=== PATIENT | male | born 1945 | race African-American/Black ===

== ENCOUNTER 2021-07-24 12:45 | Inpatient (IN) | payer MEDICARE ==
[~2021-07-24 12:45] MED LIST: Iopamidol-370 76% 500 ML 1 ML ONE
[2021-07-24] MEDS ORDERED: Ondansetron PF 4 MG/2 ML Vial ONE (13:26)
[2021-07-24 13:49] LABS: #Monocytes 0.6 thou/uL (0.11-0.59); #Neutrophils 6.7 thou/uL (1.40-6.50); %Basophils 0.1 % (0.0-1.0); %Eosinophils 0.3 % (0.0-10.0); %Lymphocytes 11.8 % (21.0-51.0); %Monocytes 6.6 % (0.0-10.0); %Neutrophils 81.1 % (42.0-75.0); Hemoglobin 14.6 g/dL (14.0-18.0); Mean Corpuscular HGB CONC 34.6 g/dL (32.0-36.0); Mean Corpuscular Hemoglobin 34.3 pg (27.0-31.0); Mean Corpuscular Volume 99.1 fL (78.0-98.0); Mean Platelet Volume 9.4 fL (7.4-10.4); Platelet Count 227 thou/uL (130-400); Red Blood Cell (RBC) Count 4.26 mill/uL (4.70-6.10); White Blood Cell (WBC) Count 8.3 thou/uL (4.8-10.8)
[2021-07-24 14:13] LABS: ALT (SGPT) 38 U/L (8-55); AST (SGOT) 34 U/L (5-34); Albumin 3.7 g/dL (3.4-4.8); Alkaline Phosphatase 128 U/L (40-110); Anion Gap 15 mmol/L (10-20); BUN (Urea Nitrogen) 10 mg/dL (8.4-25.7); Bilirubin, Total 0.7 mg/dL (0.2-1.2); Calc. Creatinine Clearance 0 mL/min (70-130); Calcium 9.3 mg/dL (7.8-10.44); Carbon Dioxide 29 mmol/L (23-31); Chloride 100 mmol/L (98-107); Globulin 5.2 g/dL (2.4-3.5); Glucose 127 mg/dL (83-110); Lipase 36 U/L (8-78); Potassium 3.5 mmol/L (3.5-5.1); Protein, Total 8.9 g/dL (5.8-8.1); Sodium 140 mmol/L (136-145)
[2021-07-24] MEDS ORDERED: hydrALAZINE 20 MG/ML VIAL ONE (15:16)
[2021-07-24] MEDS ORDERED: Acetaminophen 650 MG Suppository PR PRN (16:01)
[2021-07-24] MEDS ORDERED: Bisacodyl 10 MG SUPP PR PRN (16:01)
[2021-07-24] MEDS ORDERED: Ondansetron PF 4 MG/2 ML Vial IVP PRN (16:01)
[2021-07-24] MEDS ORDERED: hydrALAZINE 20 MG/ML VIAL SLOW IVP PRN (16:06)
[2021-07-24] MEDS ORDERED: Labetalol HCl 100 MG/20 ML VIAL SLOW IVP PRN (16:06)
[2021-07-24] MEDS ORDERED: HumaLOG 300 UNITS/3 ML VIAL SC PRN (16:45)
[2021-07-24] MEDS ORDERED: Dextrose 5% in Water 1,000 ML IV PRN (16:45)
[2021-07-24] MEDS ORDERED: Dextrose 50% Abboject 50 ML SYRINGE SLOW IVP PRN (16:45)
[2021-07-24] MEDS ORDERED: Piperacillin/Tazobactam 3.375 GM in Sodium Chloride 0.9% 100 ML IVPB SCH ×2 (17:15→18:00)
[2021-07-24] MEDS ORDERED: Enalaprilat Dihydrate 1.25 MG/ML VIAL SLOW IVP SCH (18:00)
[2021-07-24] MEDS ORDERED: Ondansetron ODT 4 MG TAB SL PRN (18:15)
[2021-07-24] MEDS ORDERED: Morphine 2 MG/ML VIAL SLOW IVP PRN (18:17)
[2021-07-24] MEDS ORDERED: Melatonin 3 MG TAB PO PRN (18:17)
[2021-07-24] MEDS ORDERED: Morphine 4 MG/ML VIAL SLOW IVP PRN (18:17)
[2021-07-24] MEDS: Metoprolol Tartrate 5 MG/5 ML VIAL IVP SCH (18:27)
[2021-07-24] MEDS: Sodium Chloride 0.9% 1,000 ML IV SCH (18:27)
[2021-07-24 18:52] VITALS: BMI 44.0
[2021-07-24] MEDS: Piperacillin/Tazobactam 3.375 GM in Sodium Chloride 0.9% 100 ML IVPB SCH (20:37)
[2021-07-24] MEDS: Famotidine/PF 20 mg/2ml Vial SLOW IVP SCH (20:37)
[2021-07-25] MEDS: Metoprolol Tartrate 5 MG/5 ML VIAL IVP SCH ×3 (00:11→11:34)
[2021-07-25 06:18] LABS: #Eosinphils 0.2 thou/uL (0.0-0.7); #Lymphocytes 1.3 thou/uL (1.20-3.40); #Monocytes 0.6 thou/uL (0.11-0.59); #Neutrophils 3.3 thou/uL (1.40-6.50); %Basophils 0.6 % (0.0-1.0); %Eosinophils 3.1 % (0.0-10.0); %Lymphocytes 23.7 % (21.0-51.0); %Monocytes 10.8 % (0.0-10.0); %Neutrophils 61.7 % (42.0-75.0); Hemoglobin 13.4 g/dL (14.0-18.0); Mean Corpuscular HGB CONC 34.5 g/dL (32.0-36.0); Mean Corpuscular Hemoglobin 34.4 pg (27.0-31.0); Mean Corpuscular Volume 99.8 fL (78.0-98.0); Platelet Count 209 thou/uL (130-400); RBC Distribution Width 13.1 % (11.5-14.5); Red Blood Cell (RBC) Count 3.88 mill/uL (4.70-6.10); White Blood Cell (WBC) Count 5.3 thou/uL (4.8-10.8)
[2021-07-25] MEDS: Piperacillin/Tazobactam 3.375 GM in Sodium Chloride 0.9% 100 ML IVPB SCH ×3 (06:32→20:44)
[2021-07-25 06:34] LABS: Anion Gap 10 mmol/L (10-20); BUN (Urea Nitrogen) 10 mg/dL (8.4-25.7); Calc. Creatinine Clearance 145 mL/min (70-130); Calcium 8.3 mg/dL (7.8-10.44); Carbon Dioxide 33 mmol/L (23-31); Chloride 103 mmol/L (98-107); Glucose 113 mg/dL (83-110); Potassium 3.7 mmol/L (3.5-5.1); Sodium 142 mmol/L (136-145)
[2021-07-25] MEDS: Enoxaparin Sodium 40 MG/0.4 ML SYRINGE SC SCH (11:30)
[2021-07-25] MEDS: Famotidine/PF 20 mg/2ml Vial SLOW IVP SCH ×2 (11:30→20:44)
[2021-07-25 11:51] LABS: SARS-CoV-2 PCR by NAA Not Detected (NotDetected)
[2021-07-25] MEDS ORDERED: MD-Gastroview 120 ML BOT ONE (13:50)
[2021-07-25] MEDS: hydrALAZINE 20 MG/ML VIAL SLOW IVP PRN (15:41)
[2021-07-25] MEDS ORDERED: Atenolol 50 MG TAB PO SCH ×3 (16:00→21:00)
[2021-07-25] MEDS ORDERED: Amlodipine 10 MG TAB PO SCH ×3 (16:00→21:00)
[2021-07-25] MEDS ORDERED: Metoprolol Tartrate 5 MG/5 ML VIAL IVP PRN (16:08)
[2021-07-25 17:16] LABS: Magnesium 1.8 mg/dL (1.6-2.6)
[2021-07-25] MEDS: Sodium Chloride 0.9% 1,000 ML IV SCH (19:27)
[2021-07-25] MEDS: hydrALAZINE 25 MG TAB PO SCH (20:43)
[2021-07-25] MEDS: Lisinopril 20 MG TAB PO SCH (20:43)
[2021-07-25] MEDS ORDERED: Non-Formulary Item 1 EACH (Hydralazine Hcl [Hydralazine Hcl] 50 MG Tablet) PO SCH (21:00)
[2021-07-26] MEDS: hydrALAZINE 20 MG/ML VIAL SLOW IVP PRN ×2 (02:00→13:14)
[2021-07-26] MEDS: Sodium Chloride 0.9% 1,000 ML IV SCH (05:19)
[2021-07-26] MEDS: Piperacillin/Tazobactam 3.375 GM in Sodium Chloride 0.9% 100 ML IVPB SCH ×3 (05:19→21:08)
[2021-07-26 08:03] LABS: Chloride 104 mmol/L (98-107); Potassium 3.5 mmol/L (3.5-5.1); Sodium 143 mmol/L (136-145)
[2021-07-26 08:04] LABS: Glucose 96 mg/dL (83-110)
[2021-07-26 08:06] LABS: Anion Gap 14 mmol/L (10-20); Carbon Dioxide 29 mmol/L (23-31)
[2021-07-26 08:07] LABS: Phosphorus 2.5 mg/dL (2.3-4.7)
[2021-07-26 08:08] LABS: BUN (Urea Nitrogen) 10 mg/dL (8.4-25.7); Calc. Creatinine Clearance 135 mL/min (70-130)
[2021-07-26 08:10] LABS: Magnesium 1.8 mg/dL (1.6-2.6)
[2021-07-26] MEDS: Famotidine/PF 20 mg/2ml Vial SLOW IVP SCH ×2 (09:05→21:08)
[2021-07-26] MEDS: Enoxaparin Sodium 40 MG/0.4 ML SYRINGE SC SCH (09:05)
[2021-07-26] MEDS: hydrALAZINE 25 MG TAB PO SCH ×3 (09:06→21:08)
[2021-07-26] MEDS ORDERED: Atenolol 50 MG TAB PO SCH (17:00)
[2021-07-26] MEDS ORDERED: Amlodipine 10 MG TAB PO SCH (17:00)
[2021-07-26] MEDS: Lisinopril 20 MG TAB PO SCH (21:08)
[2021-07-27] MEDS: hydrALAZINE 20 MG/ML VIAL SLOW IVP PRN (04:46)
[2021-07-27] MEDS: Piperacillin/Tazobactam 3.375 GM in Sodium Chloride 0.9% 100 ML IVPB SCH (05:02)
[2021-07-27] MEDS ORDERED: Atenolol 50 MG TAB PO SCH (09:00)
[2021-07-27] MEDS ORDERED: Amlodipine 10 MG TAB PO SCH (09:00)
[2021-07-27] MEDS: Famotidine/PF 20 mg/2ml Vial SLOW IVP SCH (09:41)
[2021-07-27] MEDS: hydrALAZINE 25 MG TAB PO SCH ×2 (09:41→16:27)
[2021-07-27] MEDS: Enoxaparin Sodium 40 MG/0.4 ML SYRINGE SC SCH (09:43)
[2021-07-27 16:28] VITALS: BP 182/108; TEMP 97.5
== END 2021-07-27 17:11 | disposition home or self-care (01) | DRG 389 ==
LOC: ERS 12:45 → 2SW 15:17 → OBSVTOIN 07-26 10:45
PROVIDERS: ADMIT Family Medicine; ATTEND Family Medicine
PROC: 0D9670Z Drainage of Stomach with Drainage Device, Via Natural or Artificial Opening (ICD-10-PCS; principal; 2021-07-26)
DX: K56.609 Unspecified intestinal obstruction, unspecified as to partial versus complete obstruction (principal); Z68.41 Body mass index [BMI] 40.0-44.9, adult; K56.7 Ileus, unspecified; K52.9 Noninfective gastroenteritis and colitis, unspecified; Z20.822 Contact with and (suspected) exposure to COVID-19; I10 Essential (primary) hypertension; E11.9 Type 2 diabetes mellitus without complications; K59.00 Constipation, unspecified; E66.01 Morbid (severe) obesity due to excess calories; Z79.899 Other long term (current) drug therapy
CPT/HCPCS: 36415; 36416; 74018; 74022; 74177; 74250; 80048; 80053; 83690; 83735; 84100; 84484; 85025; 93005; 96372; 96374; 96375; 96376; G0378; J0360; J1650; J2405; J2543; J3490; J7050; Q9963; S0028; U0003; U0005

== ENCOUNTER 2021-10-22 02:27 | Inpatient (IN) | payer MEDICARE ==
[2021-10-22 03:32] VITALS: BMI 42.9
[2021-10-22] MEDS ORDERED: Morphine 4 MG/ML VIAL SLOW IVP PRN ×2 (03:42)
[2021-10-22] MEDS ORDERED: Ondansetron ODT 4 MG TAB SL PRN (03:45)
[2021-10-22] MEDS ORDERED: Ondansetron PF 4 MG/2 ML Vial IVP PRN (03:45)
[2021-10-22] MEDS ORDERED: 1/2 NS w/KCL 20 mEq 1,000 ML IV SCH (03:45)
[2021-10-22] MEDS ORDERED: Acetaminophen 650 MG Suppository PR PRN (04:18)
[2021-10-22] MEDS: Sodium Chloride 0.9% 1,000 ML IV SCH ×3 (04:31→21:30)
[2021-10-22 05:21] LABS: SARS-CoV-2 NAA Rapid Test Not Detected (NotDetected)
[2021-10-22 06:40] LABS: #Lymphocytes 0.9 thou/uL (1.20-3.40); #Monocytes 0.3 thou/uL (0.11-0.59); #Neutrophils 4.9 thou/uL (1.40-6.50); %Basophils 0.2 % (0.0-1.0); %Eosinophils 0.2 % (0.0-10.0); %Lymphocytes 14.4 % (21.0-51.0); %Monocytes 5.1 % (0.0-10.0); %Neutrophils 80.1 % (42.0-75.0); Hemoglobin 13.7 g/dL (14.0-18.0); Mean Corpuscular HGB CONC 32.7 g/dL (32.0-36.0); Mean Corpuscular Hemoglobin 33.3 pg (27.0-31.0); Mean Platelet Volume 9.8 fL (7.4-10.4); Platelet Count 193 thou/uL (130-400); RBC Distribution Width 13.5 % (11.5-14.5); Red Blood Cell (RBC) Count 4.12 mill/uL (4.70-6.10); White Blood Cell (WBC) Count 6.1 thou/uL (4.8-10.8)
[2021-10-22 06:55] LABS: Anion Gap 11 mmol/L (10-20); BUN (Urea Nitrogen) 11 mg/dL (8.4-25.7); Calc. Creatinine Clearance 139 mL/min (70-130); Calcium 8.7 mg/dL (7.8-10.44); Carbon Dioxide 31 mmol/L (23-31); Chloride 101 mmol/L (98-107); Glucose 129 mg/dL (83-110); Potassium 3.6 mmol/L (3.5-5.1); Sodium 139 mmol/L (136-145)
[2021-10-22] MEDS ORDERED: Dextrose 50% Abboject 50 ML SYRINGE SLOW IVP PRN (08:44)
[2021-10-22] MEDS ORDERED: Dextrose 5% in Water 1,000 ML IV PRN (08:44)
[2021-10-22] MEDS ORDERED: HumaLOG 300 UNITS/3 ML VIAL SC PRN ×2 (08:44)
[2021-10-22] MEDS ORDERED: hydrALAZINE 20 MG/ML VIAL SLOW IVP PRN (08:54)
[2021-10-22] MEDS: Ondansetron PF 4 MG/2 ML Vial IVP PRN ×2 (09:06→15:51)
[2021-10-22] MEDS ORDERED: MD-Gastroview 120 ML BOT ONE (09:53)
[2021-10-23] MEDS: Labetalol HCl 100 MG/20 ML VIAL SLOW IVP PRN ×2 (01:16→09:18)
[2021-10-23] MEDS: Sodium Chloride 0.9% 1,000 ML IV SCH ×2 (05:57→13:07)
[2021-10-23 06:40] LABS: #Lymphocytes 1.2 thou/uL (1.20-3.40); #Monocytes 0.6 thou/uL (0.11-0.59); #Neutrophils 3.6 thou/uL (1.40-6.50); %Basophils 0.3 % (0.0-1.0); %Eosinophils 0.6 % (0.0-10.0); %Lymphocytes 22.5 % (21.0-51.0); %Monocytes 11.4 % (0.0-10.0); %Neutrophils 65.1 % (42.0-75.0); Hemoglobin 12.8 g/dL (14.0-18.0); Mean Corpuscular HGB CONC 31.9 g/dL (32.0-36.0); Mean Platelet Volume 9.6 fL (7.4-10.4); Platelet Count 194 thou/uL (130-400); RBC Distribution Width 13.8 % (11.5-14.5); Red Blood Cell (RBC) Count 3.88 mill/uL (4.70-6.10); White Blood Cell (WBC) Count 5.5 thou/uL (4.8-10.8)
[2021-10-23 07:02] LABS: Anion Gap 9 mmol/L (10-20); BUN (Urea Nitrogen) 17 mg/dL (8.4-25.7); Calc. Creatinine Clearance 136 mL/min (70-130); Calcium 8.7 mg/dL (7.8-10.44); Carbon Dioxide 29 mmol/L (23-31); Chloride 108 mmol/L (98-107); Glucose 116 mg/dL (83-110); Potassium 3.3 mmol/L (3.5-5.1); Sodium 143 mmol/L (136-145)
[2021-10-23] MEDS ORDERED: FlunisoLIDE 0.025% Nasal Spray 25 ml Bottle EA NARE PRN (11:30)
[2021-10-23] MEDS ORDERED: Potassium Chloride 20 MEQ in Premix Bag 1 BAG IVPB SCH (11:45)
[2021-10-23] MEDS ORDERED: Atenolol 50 MG TAB PO SCH (12:15)
[2021-10-23] MEDS ORDERED: Amlodipine 10 MG TAB PO SCH (12:15)
[2021-10-23] MEDS: hydrALAZINE 25 MG TAB PO SCH ×2 (15:03→20:28)
[2021-10-23] MEDS: Lisinopril 20 MG TAB PO SCH (20:29)
[2021-10-24] MEDS: Sodium Chloride 0.9% 1,000 ML IV SCH ×3 (01:55→20:53)
[2021-10-24 07:42] LABS: #Eosinphils 0.2 thou/uL (0.0-0.7); #Lymphocytes 1.8 thou/uL (1.20-3.40); #Monocytes 0.6 thou/uL (0.11-0.59); #Neutrophils 3.2 thou/uL (1.40-6.50); %Basophils 0.8 % (0.0-1.0); %Eosinophils 2.6 % (0.0-10.0); %Lymphocytes 30.5 % (21.0-51.0); %Monocytes 10.8 % (0.0-10.0); %Neutrophils 55.3 % (42.0-75.0); Mean Corpuscular HGB CONC 31.9 g/dL (32.0-36.0); Mean Corpuscular Hemoglobin 32.9 pg (27.0-31.0); Platelet Count 176 thou/uL (130-400); RBC Distribution Width 13.4 % (11.5-14.5); Red Blood Cell (RBC) Count 3.95 mill/uL (4.70-6.10); White Blood Cell (WBC) Count 5.8 thou/uL (4.8-10.8)
[2021-10-24 08:37] LABS: Anion Gap 11 mmol/L (10-20); BUN (Urea Nitrogen) 7 mg/dL (8.4-25.7); Calc. Creatinine Clearance 148 mL/min (70-130); Calcium 8.6 mg/dL (7.8-10.44); Carbon Dioxide 29 mmol/L (23-31); Chloride 104 mmol/L (98-107); Glucose 87 mg/dL (83-110); Potassium 3.1 mmol/L (3.5-5.1); Sodium 141 mmol/L (136-145)
[2021-10-24] MEDS: hydrALAZINE 25 MG TAB PO SCH ×3 (09:01→20:53)
[2021-10-24] MEDS ORDERED: Potassium Chloride 40 MEQ in Premix Bag 1 BAG IVPB SCH (09:30)
[2021-10-24] MEDS: Labetalol HCl 100 MG/20 ML VIAL SLOW IVP PRN (11:05)
[2021-10-24] MEDS: Potassium Chloride 20 MEQ in Premix Bag 1 BAG IVPB SCH ×2 (11:10→14:51)
[2021-10-24] MEDS ORDERED: cloNIDine 0.1 MG TAB PO SCH (14:15)
[2021-10-24] MEDS ORDERED: cloNIDine 0.1 MG TAB PO PRN (15:53)
[2021-10-24] MEDS: Potassium Bicarbonate/Cit Ac 25 MEQ TAB PO SCH (17:00)
[2021-10-24] MEDS: NIFEdipine XL 60 MG TAB PO SCH (20:53)
[2021-10-24] MEDS: Lisinopril 20 MG TAB PO SCH (20:54)
[2021-10-24] MEDS ORDERED: Atenolol 50 MG TAB PO SCH (21:00)
[2021-10-24] MEDS ORDERED: Amlodipine 10 MG TAB PO SCH (21:00)
[2021-10-25 06:06] LABS: #Eosinphils 0.2 thou/uL (0.0-0.7); #Lymphocytes 2.1 thou/uL (1.20-3.40); #Monocytes 0.5 thou/uL (0.11-0.59); #Neutrophils 3.2 thou/uL (1.40-6.50); %Basophils 0.6 % (0.0-1.0); %Eosinophils 2.6 % (0.0-10.0); %Monocytes 8.8 % (0.0-10.0); Hemoglobin 12.9 g/dL (14.0-18.0); Mean Corpuscular HGB CONC 32.6 g/dL (32.0-36.0); Mean Corpuscular Hemoglobin 33.3 pg (27.0-31.0); Mean Platelet Volume 9.8 fL (7.4-10.4); Platelet Count 175 thou/uL (130-400); RBC Distribution Width 13.1 % (11.5-14.5); Red Blood Cell (RBC) Count 3.87 mill/uL (4.70-6.10)
[2021-10-25 06:18] LABS: Anion Gap 9 mmol/L (10-20); BUN (Urea Nitrogen) 5 mg/dL (8.4-25.7); Calc. Creatinine Clearance 156 mL/min (70-130); Calcium 8.4 mg/dL (7.8-10.44); Carbon Dioxide 29 mmol/L (23-31); Chloride 103 mmol/L (98-107); Glucose 93 mg/dL (83-110); Potassium 3.1 mmol/L (3.5-5.1); Sodium 138 mmol/L (136-145)
[2021-10-25 08:45] LABS: Magnesium 1.5 mg/dL (1.6-2.6)
[2021-10-25] MEDS: hydrALAZINE 25 MG TAB PO SCH ×2 (09:35→15:23)
[2021-10-25] MEDS: NIFEdipine XL 60 MG TAB PO SCH (09:35)
[2021-10-25] MEDS: Potassium Bicarbonate/Cit Ac 25 MEQ TAB PO SCH ×2 (09:35→16:47)
[2021-10-25] MEDS: Potassium Chloride 20 MEQ in Premix Bag 1 BAG IVPB SCH ×2 (09:37→13:16)
[2021-10-25] MEDS ORDERED: Magnesium 2 GM/50 ML 2 GM in Premix Bag 1 BAG IVPB SCH (13:00)
[2021-10-25] MEDS ORDERED: Magnesium Sulfate 2 GM in Sodium Chloride 0.9% 100 ML IVPB SCH (13:00)
[2021-10-25 14:20] LABS: Potassium 3.3 mmol/L (3.5-5.1)
[2021-10-25 16:59] VITALS: BP 156/93; TEMP 97.9
== END 2021-10-25 19:19 | disposition home or self-care (01) | DRG 389 ==
LOC: SURG B 03:22
PROVIDERS: ADMIT Internal Medicine; ATTEND Internal Medicine
PROC: 0D9670Z Drainage of Stomach with Drainage Device, Via Natural or Artificial Opening (ICD-10-PCS; principal; 2021-10-22)
DX: K56.609 Unspecified intestinal obstruction, unspecified as to partial versus complete obstruction (principal); Z68.41 Body mass index [BMI] 40.0-44.9, adult; I10 Essential (primary) hypertension; E11.9 Type 2 diabetes mellitus without complications; G47.33 Obstructive sleep apnea (adult) (pediatric); E87.6 Hypokalemia; E66.9 Obesity, unspecified; Z20.822 Contact with and (suspected) exposure to COVID-19; Z79.899 Other long term (current) drug therapy
CPT/HCPCS: 36415; 36416; 74250; 80048; 83735; 85025; J0360; J2405; J3475; J3480; J7050; Q9963; U0002

== ENCOUNTER 2022-05-15 15:00 | Inpatient (IN) | payer MEDICARE ==
[2022-05-15] MEDS ORDERED: Ondansetron ODT 4 MG TAB PO PRN (21:21)
[2022-05-15] MEDS ORDERED: Acetaminophen 325 MG TAB PO PRN (21:21)
[2022-05-15] MEDS ORDERED: hydrALAZINE 20 MG/ML VIAL SLOW IVP PRN (21:48)
[2022-05-15 21:49] VITALS: BMI 43.5
[2022-05-15] MEDS ORDERED: HumaLOG 300 UNITS/3 ML VIAL SC PRN ×2 (22:09→22:12)
[2022-05-15] MEDS ORDERED: Dextrose 50% Abboject 50 ML SYRINGE SLOW IVP PRN (22:09)
[2022-05-15] MEDS ORDERED: Dextrose 5% in Water 1,000 ML IV PRN (22:12)
[2022-05-16 05:08] LABS: #Eosinphils 0.1 thou/uL (0.0-0.7); #Lymphocytes 1.7 thou/uL (1.20-3.40); #Monocytes 0.4 thou/uL (0.11-0.59); #Neutrophils 2.9 thou/uL (1.40-6.50); %Basophils 0.7 % (0.0-1.0); %Eosinophils 2.7 % (0.0-10.0); %Lymphocytes 32.7 % (21.0-51.0); %Monocytes 7.9 % (0.0-10.0); %Neutrophils 55.9 % (42.0-75.0); Hemoglobin 12.3 g/dL (14.0-18.0); Mean Corpuscular HGB CONC 32.4 g/dL (32.0-36.0); Mean Corpuscular Hemoglobin 32.9 pg (27.0-31.0); Mean Platelet Volume 10.1 fL (7.4-10.4); Platelet Count 145 thou/uL (130-400); RBC Distribution Width 13.7 % (11.5-14.5); Red Blood Cell (RBC) Count 3.74 mill/uL (4.70-6.10); White Blood Cell (WBC) Count 5.2 thou/uL (4.8-10.8)
[2022-05-16 05:13] LABS: Hemoglobin A1c 5.7 % (4.0-6.0)
[2022-05-16 06:26] LABS: Anion Gap 13 mmol/L (10-20); BUN (Urea Nitrogen) 11 mg/dL (8.4-25.7); Calc. Creatinine Clearance 141 mL/min (70-130); Calcium 8.9 mg/dL (7.8-10.44); Carbon Dioxide 26 mmol/L (23-31); Cardiac Risk 5.4 (Less than 4.5); Chloride 103 mmol/L (98-107); Cholesterol 217 mg/dl (< 200 Desired); Estimated GFR 91; Glucose 103 mg/dL (83-110); HDL Cholesterol 40 mg/dL (>60 Neg Risk); LDL Cholesterol, Calculated 143 mg/dL; Potassium 3.7 mmol/L (3.5-5.1); Sodium 138 mmol/L (136-145); Triglycerides 171 mg/dL (Less than 150)
[2022-05-16] MEDS: hydrALAZINE 25 MG TAB PO SCH ×2 (08:45→14:18)
[2022-05-16] MEDS: metFORMIN 500 MG TAB PO SCH ×2 (08:45→17:12)
[2022-05-16] MEDS: Polyvinyl Alcohol 1.4%/Povidone 0.6% Opth Drops EA EYE SCH ×3 (08:46→17:15)
[2022-05-16] MEDS ORDERED: NIFEdipine XL 60 MG TAB PO SCH (09:00)
[2022-05-16] MEDS ORDERED: Amlodipine 10 MG TAB PO SCH (09:00)
[2022-05-16] MEDS ORDERED: Aspirin 81 mg Enteric Coated Tablet PO SCH (09:00)
[2022-05-16] MEDS ORDERED: Clopidogrel Bisulfate 75 MG TAB PO SCH (09:00)
[2022-05-16] MEDS ORDERED: Atenolol 50 MG TAB PO SCH (09:00)
[2022-05-16] MEDS ORDERED: Enoxaparin Sodium 40 MG/0.4 ML SYRINGE SC SCH (09:00)
[2022-05-16] MEDS ORDERED: LUBRICATING EA EYE PRN (09:54)
[2022-05-16] MEDS ORDERED: Magnevist 469MG/ML 20 ML VIAL ONE (11:46)
[2022-05-16] MEDS: CARBOXYMETHYLCELLULOSE EA EYE PRN ×2 (14:18→17:12)
[2022-05-16 15:18] LABS: Magnesium 1.8 mg/dL (1.6-2.6)
[2022-05-16 16:36] VITALS: BP 165/86; TEMP 97.5
[2022-05-16] MEDS ORDERED: Rosuvastatin 20 MG TAB PO SCH (21:00)
[2022-05-16] MEDS ORDERED: Lisinopril 20 MG TAB PO SCH (21:00)
== END 2022-05-16 18:30 | disposition home or self-care (01) | DRG 65 ==
LOC: NEURO 19:27 → OBSVTOIN 21:21
PROVIDERS: ADMIT Emergency Medicine; ATTEND Emergency Medicine
DX: I63.531 Cerebral infarction due to unspecified occlusion or stenosis of right posterior cerebral artery (principal); G81.94 Hemiplegia, unspecified affecting left nondominant side; E11.9 Type 2 diabetes mellitus without complications; I10 Essential (primary) hypertension; G47.33 Obstructive sleep apnea (adult) (pediatric); R47.1 Dysarthria and anarthria; Z20.822 Contact with and (suspected) exposure to COVID-19; D53.9 Nutritional anemia, unspecified; Z79.84 Long term (current) use of oral hypoglycemic drugs; Z79.899 Other long term (current) drug therapy; Z98.890 Other specified postprocedural states
CPT/HCPCS: 36415; 36416; 70553; 80048; 80061; 83036; 83735; 84443; 85025; 93306; A9579; J1650; U0003; U0005

== ENCOUNTER 2023-07-27 12:01 | Inpatient (IN) | payer OTHER, MEDICARE ==
[2023-07-27 12:36] LABS: #Eosinphils 0.2 thou/uL (0.0-0.7); #Monocytes 0.6 thou/uL (0.11-0.59); #Neutrophils 3.7 thou/uL (1.40-6.50); %Basophils 0.7 % (0.0-1.0); %Eosinophils 2.8 % (0.0-10.0); %Lymphocytes 20.2 % (21.0-51.0); %Monocytes 10.2 % (0.0-10.0); %Neutrophils 65.9 % (42.0-75.0); Hematocrit 28.6 % (42.0-52.0); Hemoglobin 9.3 g/dL (14.0-18.0); Mean Corpuscular HGB CONC 32.5 g/dL (32.0-36.0); Mean Corpuscular Hemoglobin 32.5 pg (27.0-31.0); Mean Platelet Volume 10.9 fL (7.4-10.4); Platelet Count 233 10x3/uL (130-400); RBC Distribution Width 15.8 % (11.5-14.5); Red Blood Cell (RBC) Count 2.86 mill/uL (4.70-6.10); White Blood Cell (WBC) Count 5.7 10x3/uL (4.8-10.8)
[2023-07-27 13:08] LABS: INR-International Normal Ratio 1.1; PTT 30.9 sec (22.9-36.1); Prothrombin Time 15.1 sec (12.0-14.7)
[2023-07-27 13:11] LABS: ALT (SGPT) 26 U/L (8-55); AST (SGOT) 25 U/L (5-34); Albumin 3.9 g/dL (3.4-4.8); Alkaline Phosphatase 67 U/L (40-110); Anion Gap 10 mmol/L (10-20); BUN (Urea Nitrogen) 15 mg/dL (8.4-25.7); Bilirubin, Total 0.2 mg/dL (0.2-1.2); Calc. Creatinine Clearance 0 mL/min (70-130); Calcium 8.7 mg/dL (7.8-10.44); Carbon Dioxide 29 mmol/L (23-31); Chloride 105 mmol/L (98-107); Estimated GFR 81; Globulin 3.3 g/dL (2.4-3.5); Glucose 93 mg/dL (83-110); Potassium 3.9 mmol/L (3.5-5.1); Protein, Total 7.2 g/dL (5.8-8.1); Sodium 140 mmol/L (136-145)
[2023-07-27 13:12] LABS: Bacteria/HPF None Seen HPF (None Seen); Bilirubin Negative (Negative); Blood, Urine Negative (Negative); CAUTI Indications for Culture Pelvic or flank pain; Clarity Clear (Clear); Glucose, Urine (Dipstick) Greater than 1000 mg/dL (Negative); Ketone, Urine Negative (Negative); Leukocyte Negative Leu/uL (Negative); Nitrite Negative (Negative); Protein, Urine (Dipstick) Negative (Neg-Trace); RBC/HPF 0-3 HPF (0-3); Specific Gravity, Urine 1.036 (1.002-1.036); Squamous Epithelial 0-3 HPF (0-3); Urobilinogen Normal mg/dL (Less than 2); WBC/HPF 0-3 HPF (0-3)
[2023-07-27 13:14] LABS: Urine Culture Reflex No No
[2023-07-27] MEDS ORDERED: Magnevist 469MG/ML 20 ML VIAL ONE (13:34)
[2023-07-27 13:35] LABS: Troponin I 0.012 ng/mL (< 0.028)
[2023-07-27] MEDS ORDERED: Ondansetron PF 4 MG/2 ML Vial IVP PRN ×2 (16:00→17:13)
[2023-07-27] MEDS ORDERED: Acetaminophen 325 MG TAB PO PRN (16:00)
[2023-07-27] MEDS ORDERED: Ondansetron ODT 4 MG TAB SL PRN (16:00)
[2023-07-27 16:41] VITALS: BMI 40.8
[2023-07-27] MEDS ORDERED: Dextrose 5% in Water 1,000 ML IV PRN (17:13)
[2023-07-27] MEDS ORDERED: Dextrose 50% Abboject 50 ML SYRINGE SLOW IVP PRN (17:13)
[2023-07-27] MEDS ORDERED: HumaLOG 300 UNITS/3 ML VIAL SC PRN ×2 (17:13)
[2023-07-27] MEDS ORDERED: Glucagon 1 MG/ML KIT IM PRN (17:13)
[2023-07-27 17:42] LABS: Troponin I Less than 0.010 ng/mL (< 0.028)
[2023-07-27] MEDS ORDERED: Aspirin 81 mg Enteric Coated Tablet PO SCH (17:45)
[2023-07-27] MEDS ORDERED: Carvedilol 25 MG TAB PO SCH (17:45)
[2023-07-27 19:01] LABS: Iron 39 ug/dL (65-175); Iron Binding Capacity, Total 396 mcg/dL (261-462)
[2023-07-27] MEDS: hydrALAZINE 25 MG TAB PO SCH (20:05)
[2023-07-27] MEDS: Apixaban 5 MG TAB PO SCH (20:05)
[2023-07-27] MEDS: Sacubitril 49 MG/Valsartan 51 MG TABLET PO SCH (20:05)
[2023-07-27] MEDS: Rosuvastatin 20 MG TAB PO SCH (20:05)
[2023-07-27] MEDS: Tamsulosin HCl 0.4 MG CAP PO SCH (20:05)
[2023-07-27 21:25] LABS: Ferritin 52.42 ng/mL (22-322)
[2023-07-28 05:28] LABS: Anion Gap 9 mmol/L (10-20); BUN (Urea Nitrogen) 13 mg/dL (8.4-25.7); Calc. Creatinine Clearance 127 mL/min (70-130); Calcium 8.5 mg/dL (7.8-10.44); Carbon Dioxide 27 mmol/L (23-31); Cardiac Risk 3.1 (Less than 4.5); Chloride 107 mmol/L (98-107); Cholesterol 102 mg/dl (< 200 Desired); Estimated GFR 90; Glucose 76 mg/dL (83-110); HDL Cholesterol 33 mg/dL (>60 Neg Risk); LDL Cholesterol, Calculated 54 mg/dL; Potassium 3.5 mmol/L (3.5-5.1); Sodium 139 mmol/L (136-145); Triglycerides 73 mg/dL (Less than 150)
[2023-07-28 07:39] LABS: #Eosinphils 0.2 thou/uL (0.0-0.7); #Monocytes 0.6 thou/uL (0.11-0.59); #Neutrophils 2.9 thou/uL (1.40-6.50); %Basophils 0.7 % (0.0-1.0); %Eosinophils 3.1 % (0.0-10.0); %Lymphocytes 31.8 % (21.0-51.0); %Monocytes 11.1 % (0.0-10.0); %Neutrophils 53.1 % (42.0-75.0); Hemoglobin 8.6 g/dL (14.0-18.0); Mean Corpuscular HGB CONC 31.9 g/dL (32.0-36.0); Mean Corpuscular Hemoglobin 32.3 pg (27.0-31.0); Mean Corpuscular Volume 101.5 fl (78.0-98.0); Mean Platelet Volume 11.5 fL (7.4-10.4); Platelet Count 216 10x3/uL (130-400); RBC Distribution Width 15.8 % (11.5-14.5); Red Blood Cell (RBC) Count 2.66 mill/uL (4.70-6.10); White Blood Cell (WBC) Count 5.4 10x3/uL (4.8-10.8)
[2023-07-28] MEDS: Carvedilol 25 MG TAB PO SCH ×3 (08:33→17:06)
[2023-07-28] MEDS: Spironolactone 25 MG TAB PO SCH (08:33)
[2023-07-28] MEDS: Aspirin 81 mg Enteric Coated Tablet PO SCH (08:34)
[2023-07-28] MEDS: Apixaban 5 MG TAB PO SCH (08:34)
[2023-07-28] MEDS: Empagliflozin 10 MG TAB PO SCH (08:34)
[2023-07-28] MEDS: hydrALAZINE 25 MG TAB PO SCH ×3 (08:34→20:07)
[2023-07-28] MEDS: Tamsulosin HCl 0.4 MG CAP PO SCH ×2 (08:34→20:08)
[2023-07-28] MEDS: Sacubitril 49 MG/Valsartan 51 MG TABLET PO SCH ×2 (08:35→20:07)
[2023-07-28] MEDS ORDERED: Iron Sucrose Complex 200 MG in Sodium Chloride 0.9% 100 ML IVPB SCH (12:00)
[2023-07-28] MEDS ORDERED: Iron, Sodium Ferric Gluconate 250 MG in Sodium Chloride 0.9% 250 ML 250 ML IVPB SCH (12:15)
[2023-07-28] MEDS: Rosuvastatin 20 MG TAB PO SCH (20:07)
[2023-07-29] MEDS ORDERED: Oxymetazoline HCl 0.05% (30 ML BOT) NS PRN (00:52)
[2023-07-29 05:21] LABS: #Eosinphils 0.2 thou/uL (0.0-0.7); #Monocytes 0.6 thou/uL (0.11-0.59); #Neutrophils 3.3 thou/uL (1.40-6.50); %Basophils 0.7 % (0.0-1.0); %Eosinophils 3.9 % (0.0-10.0); %Lymphocytes 23.2 % (21.0-51.0); %Monocytes 11.4 % (0.0-10.0); %Neutrophils 60.6 % (42.0-75.0); Hematocrit 26.7 % (42.0-52.0); Hemoglobin 8.6 g/dL (14.0-18.0); Mean Corpuscular HGB CONC 32.2 g/dL (32.0-36.0); Mean Corpuscular Hemoglobin 32.1 pg (27.0-31.0); Mean Corpuscular Volume 99.6 fl (78.0-98.0); Mean Platelet Volume 10.7 fL (7.4-10.4); Platelet Count 211 10x3/uL (130-400); RBC Distribution Width 15.3 % (11.5-14.5); Red Blood Cell (RBC) Count 2.68 mill/uL (4.70-6.10); White Blood Cell (WBC) Count 5.4 10x3/uL (4.8-10.8)
[2023-07-29 06:13] LABS: Anion Gap 12 mmol/L (10-20); BUN (Urea Nitrogen) 10 mg/dL (8.4-25.7); Calc. Creatinine Clearance 138 mL/min (70-130); Calcium 8.3 mg/dL (7.8-10.44); Carbon Dioxide 26 mmol/L (23-31); Chloride 105 mmol/L (98-107); Estimated GFR 92; Glucose 78 mg/dL (83-110); Potassium 3.4 mmol/L (3.5-5.1); Sodium 140 mmol/L (136-145)
[2023-07-29] MEDS: Sacubitril 49 MG/Valsartan 51 MG TABLET PO SCH ×2 (08:23→20:17)
[2023-07-29] MEDS: Spironolactone 25 MG TAB PO SCH (08:24)
[2023-07-29] MEDS: Carvedilol 25 MG TAB PO SCH ×2 (08:24→16:23)
[2023-07-29] MEDS: hydrALAZINE 25 MG TAB PO SCH ×3 (08:24→20:16)
[2023-07-29] MEDS: Empagliflozin 10 MG TAB PO SCH (08:24)
[2023-07-29] MEDS: Tamsulosin HCl 0.4 MG CAP PO SCH ×2 (08:24→20:16)
[2023-07-29] MEDS: Aspirin 81 mg Enteric Coated Tablet PO SCH (09:22)
[2023-07-29] MEDS: Potassium Chloride 20 MEQ TAB PO SCH ×2 (11:59→16:23)
[2023-07-29] MEDS ORDERED: GoLYTELY 4,000 ml Bottle PO SCH (16:00)
[2023-07-29] MEDS: Rosuvastatin 20 MG TAB PO SCH (20:17)
[2023-07-30 06:11] LABS: #Basophils 0.1 thou/uL (0.0-0.2); #Eosinphils 0.2 thou/uL (0.0-0.7); #Monocytes 0.8 thou/uL (0.11-0.59); #Neutrophils 2.2 thou/uL (1.40-6.50); %Basophils 1.1 % (0.0-1.0); %Eosinophils 4.4 % (0.0-10.0); %Lymphocytes 39.2 % (21.0-51.0); %Neutrophils 41.1 % (42.0-75.0); Hematocrit 28.7 % (42.0-52.0); Hemoglobin 9.2 g/dL (14.0-18.0); Mean Corpuscular HGB CONC 32.1 g/dL (32.0-36.0); Mean Corpuscular Hemoglobin 31.5 pg (27.0-31.0); Mean Corpuscular Volume 98.3 fl (78.0-98.0); Platelet Count 228 10x3/uL (130-400); RBC Distribution Width 15.4 % (11.5-14.5); Red Blood Cell (RBC) Count 2.92 mill/uL (4.70-6.10); White Blood Cell (WBC) Count 5.4 10x3/uL (4.8-10.8)
[2023-07-30 06:30] LABS: Anion Gap 12 mmol/L (10-20); BUN (Urea Nitrogen) 8 mg/dL (8.4-25.7); Calc. Creatinine Clearance 135 mL/min (70-130); Calcium 8.7 mg/dL (7.8-10.44); Carbon Dioxide 23 mmol/L (23-31); Chloride 107 mmol/L (98-107); Estimated GFR 92; Glucose 66 mg/dL (83-110); Potassium 3.8 mmol/L (3.5-5.1); Sodium 138 mmol/L (136-145)
[2023-07-30] MEDS ORDERED: Midazolam HCl 2 mg/2 ml Vial ONE (10:17)
[2023-07-30] MEDS ORDERED: PROPOFOL 200 MG/20 ML VIAL ONE (10:30)
[2023-07-30 12:29] LABS: Glucose POC Confirmation 87 mg/dL (83-110)
[2023-07-30] MEDS ORDERED: Lidocaine 1% w/Epinephrine 1:100K 20 ML VIAL ONE (12:36)
[2023-07-30] MEDS: hydrALAZINE 25 MG TAB PO SCH ×3 (12:39→21:47)
[2023-07-30] MEDS: Carvedilol 25 MG TAB PO SCH ×2 (12:55→16:50)
[2023-07-30] MEDS: Aspirin 81 mg Enteric Coated Tablet PO SCH (12:56)
[2023-07-30] MEDS: Sacubitril 49 MG/Valsartan 51 MG TABLET PO SCH ×2 (12:56→21:47)
[2023-07-30] MEDS: Spironolactone 25 MG TAB PO SCH (12:56)
[2023-07-30] MEDS: Tamsulosin HCl 0.4 MG CAP PO SCH ×2 (12:56→21:48)
[2023-07-30] MEDS ORDERED: FLU VACC QS2023(65UP)/MF59C/PF 60 MCG/0.5 ML SYRINGE IM ONE (17:00)
[2023-07-30] MEDS: Rosuvastatin 20 MG TAB PO SCH (21:48)
[2023-07-31 05:33] LABS: #Eosinphils 0.2 thou/uL (0.0-0.7); #Monocytes 0.8 thou/uL (0.11-0.59); #Neutrophils 4.2 thou/uL (1.40-6.50); %Basophils 0.4 % (0.0-1.0); %Eosinophils 3.1 % (0.0-10.0); %Lymphocytes 26.5 % (21.0-51.0); %Monocytes 11.4 % (0.0-10.0); %Neutrophils 58.3 % (42.0-75.0); Hematocrit 27.1 % (42.0-52.0); Hemoglobin 8.7 g/dL (14.0-18.0); Mean Corpuscular HGB CONC 32.1 g/dL (32.0-36.0); Mean Corpuscular Hemoglobin 31.8 pg (27.0-31.0); Mean Corpuscular Volume 98.9 fl (78.0-98.0); Mean Platelet Volume 11.5 fL (7.4-10.4); Platelet Count 234 10x3/uL (130-400); RBC Distribution Width 15.7 % (11.5-14.5); Red Blood Cell (RBC) Count 2.74 mill/uL (4.70-6.10); White Blood Cell (WBC) Count 7.2 10x3/uL (4.8-10.8)
[2023-07-31 06:14] LABS: Anion Gap 13 mmol/L (10-20); BUN (Urea Nitrogen) 10 mg/dL (8.4-25.7); Calc. Creatinine Clearance 120 mL/min (70-130); Calcium 8.4 mg/dL (7.8-10.44); Carbon Dioxide 25 mmol/L (23-31); Chloride 105 mmol/L (98-107); Estimated GFR 88; Glucose 95 mg/dL (83-110); Magnesium 1.8 mg/dL (1.6-2.6); Potassium 3.7 mmol/L (3.5-5.1); Sodium 139 mmol/L (136-145)
[2023-07-31 08:04] VITALS: BP 173/96; TEMP 97.7
[2023-07-31] MEDS: Aspirin 81 mg Enteric Coated Tablet PO SCH (09:42)
[2023-07-31] MEDS: Carvedilol 25 MG TAB PO SCH (09:42)
[2023-07-31] MEDS: hydrALAZINE 25 MG TAB PO SCH (09:42)
[2023-07-31] MEDS: Spironolactone 25 MG TAB PO SCH (09:42)
[2023-07-31] MEDS: Sacubitril 49 MG/Valsartan 51 MG TABLET PO SCH (09:43)
[2023-07-31] MEDS: Tamsulosin HCl 0.4 MG CAP PO SCH (09:43)
== END 2023-07-31 10:47 | disposition home or self-care (01) | DRG 261 ==
LOC: ERS 12:01 → 2SE 14:50 → OBSVTOIN 07-29 12:29
PROVIDERS: ADMIT Family Medicine; ATTEND Internal Medicine
PROC: 0DB68ZX Excision of Stomach, Via Natural or Artificial Opening Endoscopic, Diagnostic (ICD-10-PCS; principal; 2023-07-30)
PROC: 0DBH8ZZ Excision of Cecum, Via Natural or Artificial Opening Endoscopic (ICD-10-PCS; 2023-07-30)
PROC: 0DBL8ZZ Excision of Transverse Colon, Via Natural or Artificial Opening Endoscopic (ICD-10-PCS; 2023-07-30)
PROC: 0DBN8ZZ Excision of Sigmoid Colon, Via Natural or Artificial Opening Endoscopic (ICD-10-PCS; 2023-07-30)
PROC: 0JH602Z Insertion of Monitoring Device into Chest Subcutaneous Tissue and Fascia, Open Approach (ICD-10-PCS; 2023-07-30)
DX: R55 Syncope and collapse (principal); D62 Acute posthemorrhagic anemia; I42.8 Other cardiomyopathies; I69.954 Hemiplegia and hemiparesis following unspecified cerebrovascular disease affecting left non-dominant side; K64.8 Other hemorrhoids; K29.70 Gastritis, unspecified, without bleeding; K63.5 Polyp of colon; D75.89 Other specified diseases of blood and blood-forming organs; E11.649 Type 2 diabetes mellitus with hypoglycemia without coma; D50.9 Iron deficiency anemia, unspecified; N40.0 Benign prostatic hyperplasia without lower urinary tract symptoms; Z79.82 Long term (current) use of aspirin; Z79.899 Other long term (current) drug therapy; Z98.890 Other specified postprocedural states; I10 Essential (primary) hypertension; E78.5 Hyperlipidemia, unspecified
CPT/HCPCS: 33285; 36415; 36416; 70450; 70553; 71045; 80048; 80053; 80061; 81001; 82274; 82607; 82728; 83540; 83550; 83735; 84484; 85025; 85610; 85730; 88305; 93005; 93306; 93880; 96365; 96376; A9579; C1764; G0378; J2250; J2916; J7050

== ENCOUNTER 2024-07-09 04:17 | Observation (INO) | payer MEDICARE, OTHER ==
[2024-07-09 06:51] LABS: Hematocrit 43.3 % (42.0-52.0); Hemoglobin 14.5 g/dL (14.0-18.0); Mean Corpuscular HGB CONC 33.5 g/dL (32.0-36.0); Mean Corpuscular Hemoglobin 32.7 pg (27.0-31.0); Mean Corpuscular Volume 97.7 fL (78.0-98.0); Mean Platelet Volume 10.8 fL (7.4-10.4); Platelet Count 206 10x3/uL (130-400); RBC Distribution Width 15.9 % (11.5-14.5); Red Blood Cell (RBC) Count 4.43 mill/uL (4.70-6.10)
[2024-07-09 07:04] LABS: ALT (SGPT) 34 U/L (8-55); AST (SGOT) 38 U/L (5-34); Albumin 3.6 g/dL (3.4-4.8); Alkaline Phosphatase 82 U/L (40-110); Anion Gap 14 mmol/L (10-20); BUN (Urea Nitrogen) 27 mg/dL (8.4-25.7); Bilirubin, Total 0.9 mg/dL (0.2-1.2); Calc. Creatinine Clearance 0 mL/min (70-130); Calcium 9.4 mg/dL (7.8-10.44); Carbon Dioxide 25 mmol/L (23-31); Chloride 102 mmol/L (98-107); Estimated GFR 18; Glucose 123 mg/dL (83-110); Potassium 3.6 mmol/L (3.5-5.1); Protein, Total 8.6 g/dL (5.8-8.1); Sodium 137 mmol/L (136-145)
[2024-07-09] MEDS ORDERED: Labetalol HCl 100 MG/20 ML VIAL ONE (07:26)
[2024-07-09] MEDS ORDERED: Acetaminophen 500 MG TAB ONE (07:26)
[2024-07-09 07:32] LABS: Lymphocytes 10 % (21-51); Monocytes 11 % (0-10); Neutrophil 79 % (42-75); Platelet Adequacy Comment Platelets Normal; RBC Morphology Within Normal Limits
[2024-07-09] MEDS ORDERED: Ondansetron PF 4 MG/2 ML Vial IVP PRN (09:06)
[2024-07-09] MEDS ORDERED: Acetaminophen 325 MG TAB PO PRN (09:06)
[2024-07-09] MEDS ORDERED: Aspirin Chewable 81 MG TAB ONE (09:09)
[2024-07-09] MEDS ORDERED: Labetalol HCl 100 MG/20 ML VIAL SLOW IVP PRN (09:13)
[2024-07-09 09:50] LABS: Bacteria/HPF None Seen HPF (None Seen); Bilirubin Negative (Negative); Blood, Urine 3+ (Negative); CAUTI Indications for Culture Acute Hematuria; Clarity Turbid (Clear); Glucose, Urine (Dipstick) Normal (Negative); Ketone, Urine Negative (Negative); Leukocyte Negative Leu/uL (Negative); Nitrite Negative (Negative); Protein, Urine (Dipstick) 10 mg/dL (Neg-Trace); RBC/HPF Greater than 50 HPF (0-3); Specific Gravity, Urine 1.001 (1.002-1.036); Squamous Epithelial 0-3 HPF (0-3); Urobilinogen Normal mg/dL (Less than 2); WBC/HPF Greater than 50 HPF (0-3); pH, Urine 6.5 (5.0-9.0)
[2024-07-09 10:14] LABS: Urine Culture Reflex Yes Yes
[2024-07-09] MEDS: hydrALAZINE 25 MG TAB PO SCH ×2 (10:15→15:18)
[2024-07-09] MEDS: Carvedilol 25 MG TAB PO SCH ×2 (10:15→17:45)
[2024-07-09] MEDS: Tamsulosin HCl 0.4 MG CAP PO SCH (10:16)
[2024-07-09 10:57] VITALS: BMI 42.5
[2024-07-09] MEDS ORDERED: Glucagon 1 MG/ML KIT IM PRN (13:09)
[2024-07-09] MEDS ORDERED: Insulin Lispro 100 UNIT/ML 10 ML VIAL SC PRN (13:09)
[2024-07-09] MEDS ORDERED: Dextrose 5% in Water 1,000 ML IV PRN (13:09)
[2024-07-09] MEDS ORDERED: Dextrose 50% Abboject 50 ML SYRINGE SLOW IVP PRN (13:09)
[2024-07-09] MEDS: Rosuvastatin 20 MG TAB PO SCH (20:14)
[2024-07-10 06:20] LABS: #Basophils 0.04 10x3/uL (0.0-0.2); %Basophils 0.6 % (0.0-1.0); %Eosinophils 2.8 % (0.0-10.0); %Lymphocytes 23.3 % (21.0-51.0); %Monocytes 11.7 % (0.0-10.0); %Neutrophils 61.4 % (42.0-75.0); Hematocrit 36.3 % (42.0-52.0); Mean Corpuscular HGB CONC 33.1 g/dL (32.0-36.0); Mean Corpuscular Hemoglobin 32.7 pg (27.0-31.0); Mean Corpuscular Volume 98.9 fL (78.0-98.0); Mean Platelet Volume 11.4 fL (7.4-10.4); Platelet Count 166 10x3/uL (130-400); Red Blood Cell (RBC) Count 3.67 mill/uL (4.70-6.10)
[2024-07-10 06:36] LABS: Albumin 2.9 g/dL (3.4-4.8); Anion Gap 10 mmol/L (10-20); BUN (Urea Nitrogen) 35 mg/dL (8.4-25.7); Calc. Creatinine Clearance 55 mL/min (70-130); Calcium 8.2 mg/dL (7.8-10.44); Carbon Dioxide 25 mmol/L (23-31); Chloride 106 mmol/L (98-107); Estimated GFR 34; Glucose 92 mg/dL (83-110); Potassium 3.3 mmol/L (3.5-5.1); Sodium 138 mmol/L (136-145)
[2024-07-10] MEDS: Potassium Chloride 20 MEQ TAB PO SCH (08:50)
[2024-07-10] MEDS: Aspirin 81 mg Enteric Coated Tablet PO SCH (08:51)
[2024-07-10] MEDS: Tamsulosin HCl 0.4 MG CAP PO SCH (08:51)
[2024-07-10] MEDS: FLU (Fluad Triv) TS24-25 (65UP)/MF59C/PF 45 MCG/0.5 ML Syringe IM ONE (13:10)
[2024-07-10 13:16] VITALS: BP 120/75; TEMP 98.3
== END 2024-07-10 14:16 | disposition home or self-care (01) ==
LOC: SUATTDRO 04:17 → ERS 04:17 → T4-A 10:07 → INTOOBSV 10:07
PROVIDERS: ADMIT Internal Medicine; ATTEND Internal Medicine
DX: N40.1 Benign prostatic hyperplasia with lower urinary tract symptoms (principal); R33.8 Other retention of urine; I11.0 Hypertensive heart disease with heart failure; I50.30 Unspecified diastolic (congestive) heart failure; E11.9 Type 2 diabetes mellitus without complications; E78.5 Hyperlipidemia, unspecified; E66.9 Obesity, unspecified; D64.9 Anemia, unspecified; N17.9 Acute kidney failure, unspecified; N13.30 Unspecified hydronephrosis; N13.9 Obstructive and reflux uropathy, unspecified; Z86.73 Personal history of transient ischemic attack (TIA), and cerebral infarction without residual deficits; Z90.49 Acquired absence of other specified parts of digestive tract; Z79.82 Long term (current) use of aspirin; Z79.899 Other long term (current) drug therapy
CPT/HCPCS: 36415; 36416; 51702; 74176; 80053; 80069; 81001; 83605; 83690; 83880; 84484; 85025; 87077; 87086; 87186; 90653; 93005; 94760; 96360; G0378

== ENCOUNTER 2024-07-28 12:40 | Emergency (ER) | payer MEDICARE ==
[2024-07-28 15:33] LABS: Bacteria/HPF 4+ HPF (None Seen); Bilirubin Negative (Negative); Blood, Urine 3+ (Negative); CAUTI Indications for Culture Dysuria,urgency,freq; Clarity Extra Turbid (Clear); Glucose, Urine (Dipstick) Normal (Negative); Ketone, Urine Negative (Negative); Leukocyte 500 Leu/uL (Negative); Nitrite Negative (Negative); Protein, Urine (Dipstick) 100 mg/dL (Neg-Trace); RBC/HPF Greater than 50 HPF (0-3); Specific Gravity, Urine 1.011 (1.002-1.036); Squamous Epithelial 0-3 HPF (0-3); Urobilinogen Normal mg/dL (Less than 2); WBC/HPF Greater than 50 HPF (0-3); pH, Urine 5.5 (5.0-9.0)
[2024-07-28 15:36] LABS: Urine Culture Reflex Yes Yes
== END 2024-07-28 16:15 | disposition home or self-care (01) ==
LOC: ERS 12:40
DX: N39.0 Urinary tract infection, site not specified (principal); R31.9 Hematuria, unspecified; E11.9 Type 2 diabetes mellitus without complications; I10 Essential (primary) hypertension; Z55.6 Problems related to health literacy; Z86.73 Personal history of transient ischemic attack (TIA), and cerebral infarction without residual deficits
CPT/HCPCS: 81001; 87077; 87086; 87186; 99283